=== PATIENT | female | born 1995 ===

== ENCOUNTER → 2017-10-16 | Outpatient (CLI) | payer MEDICAID, OTHER | LOC: BMCIMAGING 15:51 | PROVIDERS: ATTEND Orthopaedic Surgery Hand Surgery | DX: S52.501D Unspecified fracture of the lower end of right radius, subsequent encounter for closed fracture with routine healing (principal) ==

== ENCOUNTER 2017-10-24 13:01 | Day surgery (SDC) | payer MEDICAID ==
[2017-10-24] MEDS ORDERED: ceFAZolin 2 GM/SWFI 2 GM/20 ML SYR IVP ONE (13:07)
[2017-10-24] MEDS ORDERED: LIDOCAINE 1% 2 ML INJ ID PRN (13:08)
[2017-10-24] MEDS ORDERED: LR 1,000 ML IV ONE (13:08)
[2017-10-24] MEDS ORDERED: BUPIVACAINE 0.5% 30 ML SDV ONE (13:39)
[2017-10-24] MEDS ORDERED: EPINEPHrine 1 MG/ML INJ ONE (13:39)
[2017-10-24] MEDS ORDERED: HYDROGEN PEROXIDE 473 ML BOTTLE TP ONE (14:07)
[2017-10-24] MEDS ORDERED: MIDAZOLAM 2 MG/2 ML VIAL IVP ONE (14:22)
--- NOTE | 2017-10-24 14:25 | PDANEPAE ---
ANE Past Medical History - Cardiovascular History Hx Hypertension: No Hx Arrhythmias: No Hx Chest Pain: No Hx Coronary Artery / Peripheral Vascular Disease: No Hx CHF / Valvular Disease: No Hx Palpitations: No - Pulmonary History Hx COPD: No Hx Asthma/Reactive Airway Disease: No Hx Recent Upper Respiratory Infection: No Hx Oxygen in Use at Home: No Hx Sleep Apnea: No Sleep Apnea Screening Result - Last Documented: Negative - Neurologic History Hx Cerebrovascular Accident: No Hx Seizures: No Hx Dementia: No - Endocrine History Hx Diabetes: No Hypothyroid: No Hyperthyroid: No Obesity: yes, severe - Renal History Hx Renal Disorders: No - Liver History Hx Hepatic Disorders: No - Neurological & Psychiatric Hx Hx Neurological and Psychiatric Disorders: No - Cancer History Hx Cancer: No - Congenital Disorder History Hx Congenital Disorders: No - GI History GERD: no Hx Gastrointestinal Disorders: No - Other Health History Other Health History: wears glasses occassionally. eczema - Chronic Pain History Chronic Pain: No - Surgical History Prior Surgeries: na ANE Review of Systems Review of Systems: - Exercise capacity Exercise capacity: >=4 METS METS (RN): 4 METS ANE Patient History - Allergies Allergies/Adverse Reactions: Sulfa (Sulfonamide Antibiotics) Allergy (Verified 10/23/17 10:10) rash and bumps on skin - Home Medications Home Medications: Claritin 10/23/17 [Last Taken 10/13/17] Multivitamin (*) 10/23/17 [Last Taken 10/13/17] TYLENOL #3 10/23/17 [Last Taken 10/24/17 10:45] - NPO status NPO Since - Liquids (Date): 10/24/17 NPO Since - Liquids (Time): 10:45 NPO Since - Solids (Date): 10/23/17 NPO Since - Solids (Time): 18:00 - Anes Hx Hx Anesthesia Complications (with details): no H/O anesthesia - Smoking Hx Smoking Status: Never smoked - Alcohol Use Alcohol Use: Rarely - Family Anes Hx Family Anes Hx: neg - N/A Family Hx Anesthesia Complications: none ANE Labs/Vital Signs - Vital Signs Blood Pressure: 172/80 Heart Rate: 121 Respiratory Rate: 20 O2 Sat (%): 98 Height: 160.02 cm Weight: 104.326 kg ANE Physical Exam - Airway Neck exam: FROM Mallampati Score: Class 3 Mouth exam: normal dental/mouth exam - Pulmonary Pulmonary: no respiratory distress, no rales or rhonchi, clear to auscultation - Cardiovascular Cardiovascular: systolic murmur - ASA Status ASA Status: II ANE Anesthesia Plan Anesthesia Plan: general endotracheal anesthesia Total IV Anesthesia: No
--- NOTE | 2017-10-24 14:40 | PDHPUP ---
History & Physical Update H&P update statement: This history and physical update is based on an assessment of the patient which was completed after admission or registration (within 24 hours), but prior to the surgery/procedure. H&P update: H&P reviewed & patient examined, changes noted (Cardiac murmur auscultated by anesthesiologist. Echo to be performed)
[2017-10-24] MEDS ORDERED: REMIFENTANIL HCL 1 MG VIAL ONE (15:07)
[2017-10-24] MEDS ORDERED: fentaNYL 100 MCG/2 ML INJ ONE (15:07)
[2017-10-24] MEDS ORDERED: PROPOFOL 200 MG/20 ML VIAL ONE (15:07)
[2017-10-24] MEDS ORDERED: PROPOFOL/EMULSION 500 MG/50 ML BOTTLE IV ONE (15:07)
[2017-10-24] MEDS ORDERED: DEXAMETHASONE 4 MG/ML VIAL ONE (15:08)
[2017-10-24] MEDS ORDERED: ROCURONIUM 50 MG/5 ML VIAL ONE (15:08)
[2017-10-24] MEDS ORDERED: ONDANSETRON 4 MG/2 ML VIAL ONE ×2 (15:08→17:54)
[2017-10-24] MEDS ORDERED: LIDOCAINE 2% 5 ML SDV ONE (15:15)
[2017-10-24] MEDS ORDERED: NALOXONE HCL 0.4 MG/ML INJ IVP PRN (15:28)
[2017-10-24] MEDS ORDERED: HYDROCODONE/APAP 5/325 TAB PO PRN (15:33)
[2017-10-24] MEDS ORDERED: fentaNYL 100 MCG/2 ML INJ IVP PRN (15:33)
[2017-10-24] MEDS ORDERED: ACETAMINOPHEN 500 MG TAB PO PRN (15:33)
[2017-10-24] MEDS ORDERED: oxyCODONE IR 5 MG TAB PO PRN (15:33)
[2017-10-24] MEDS ORDERED: HYDROmorphONE/DILAUDID 2 MG/ML INJ IVP PRN (15:33)
[2017-10-24] MEDS ORDERED: LABETALOL HCL 5 MG/ML 20 ML MDV IVP PRN (15:50)
[2017-10-24] MEDS ORDERED: LR 500 ML IV PRN (15:50)
[2017-10-24] MEDS ORDERED: epHEDrine SULFATE 10 MG/ML SYR IVP PRN (15:50)
[2017-10-24] MEDS ORDERED: PHENYLEPHRINE HCL 100 MCG/ML SYR IVP PRN (15:50)
[2017-10-24] MEDS ORDERED: PROMETHAZINE HCL 25 MG/ML INJ IVP PRN (15:50)
[2017-10-24] MEDS ORDERED: ONDANSETRON 4 MG/2 ML VIAL IVP PRN (15:50)
--- NOTE | 2017-10-24 16:28 | ECHO ---
[email or web address] [address] [address] Main: [phone] Fax: Transthoracic Echocardiogram Name: ABUNDIO BURRELL MR#: [id number] Study Date: 10/24/2017 Study Time: 02:40 PM Date of : 1995 Age: 22 year(s) Height: ( ) Weight: ( ) BSA: Gender: Female Examination: Echo Indication: stat echo; pre-op asymptomatic murmur Image Quality: Technically Difficult Contrast: Requested by: Zaki Collazo BP: / Heart Rate: Rhythm: Tachycardia Indication: stat echo; pre-op asymptomatic murmur Procedure Staff Polymerization Helper: Joana Quick [facility] Reading Physician: Requesting Provider: Measurements: Chambers Valvular Assessment AV/MV Valvular Assessment TV/PV Normal Normal Normal Name Value Range Name Value Range Name Value Range Ao Deanna (MM): 2.8 cm (2.2 cm-3.7 AV Vmax: 1.97 m/s (1 m/s-1.7 PV Vmax: 2.23 m/s (0.6 m/s-0.9 cm) m/s) m/s) IVSd (2D): 0.8 cm (0.6 cm-1.1 AV maxP mmHg ( - ) PV Vmean: 1.54 m/s ( - ) cm) LVOT Vmax: 1.32 m/s (0.7 m/s-1.1 PV PGmax: 20 mmHg ( - ) LVDd (2D): 4.2 cm (3.9 cm-5.3 m/s) PV PGmean: 11 mmHg ( - ) cm) MV E Vmax: 1.10 m/s ( - ) PV VTI: 35.50 cm ( - ) LVDs (2D): 2.9 cm (2.1 cm-4 MV A Vmax: 1.13 m/s ( - ) cm) MV E/A: 0.97 ( - ) LVPWd (2D): 0.9 cm ( - ) LVEF (BP): 65 % (>=55 %) RVDd(2D): 2.5 cm (1.9 cm-3.8 cmmm) Continued Measurements: Chambers Name Value LADs Lon.6 cm LA Area: 18.7 cm2 LA Volume: 56 ml RVOT VTI: 19.00 cm Findings: Left Ventricle: Normal size left ventricle. No LV hypertrophy. Normal global systolic LV function. EF is 65 %. No Patient: ABUNDIO BURRELL Study Date: 10/24/2017 Page 1 of 2 02:40 PM regional wall motion abnormality. Right Ventricle: Normal size right ventricle. Normal RV function. Left Atrium: The left atrium is normal in size. Right Atrium: The right atrium is normal in size. Mitral Valve: The mitral valve is normal in appearance. There is no mitral valve regurgitation. No mitral stenosis is present. Aortic Valve: Cannot rule out bicuspid aortic valve. Aortic valve is not visualized. There is no aortic valve regurgitation. No aortic valve stenosis is present. Tricuspid Valve: The tricuspid valve is normal in appearance and function. There is no tricuspid valve regurgitation. Pulmonary artery pressure is not obtained due to inadequate TR jet. Pulmonic Valve: Pulmonary valve not well visualized. Turbulant flow throughout the RVOT, through the PV and main PA. Mean gradient across the PV 11mmHg.. Aorta: Mildly turbulant flow throughout the descending aorta with no evidence for a co-arctation.. Normal size aortic root measuring 2.8 cm. IVC: Normal size and course of the IVC. Pericardium: No pericardial effusion. There is pericardial fat. (No Signature Object) Patient: ABUNDIO BURRELL Study Date: 10/24/2017 Page 2 of 2 02:40 PM [id number]
[2017-10-24] MEDS ORDERED: fentaNYL 250 MCG/5 ML INJ ONE (16:37)
[2017-10-24] MEDS ORDERED: GLYCOPYRROLATE 0.2 MG/1 ML VIAL ONE ×3 (16:38→16:44)
[2017-10-24] MEDS ORDERED: KETOROLAC 30 MG/1 ML SDV ONE (16:38)
[2017-10-24] MEDS ORDERED: NEOSTIGMINE METHYLSULFATE 3 MG/3 ML SYR ONE (16:38)
[2017-10-24] MEDS ORDERED: LABETALOL HCL 5 MG/ML 20 ML MDV ONE (16:55)
--- NOTE | 2017-10-24 17:22 | POSTANESTH ---
Post Anesthetic Evaluation Cardiovascular Status: Similar to Pre-Op Cond Respiratory Status: Normal, Stable Level of Consciousness/Mental Status: Can Participate in Eval Pain Control: Adequate, Prn Tx Ordered Nausea/Vomiting Control: Adequate, Prn Tx Ordered Complications Possibly Related to Anesthesia: None Noted
[2017-10-24 18:21] VITALS: BP 134/86
--- NOTE | 2017-10-25 09:09 | GOP ---
[f rep st] OPERATIVE REPORT DATE OF OPERATION: 10/24/2017 SURGEON: Earl Tinsley MD ANESTHESIA: General. PREOPERATIVE DIAGNOSIS: Right distal radius intra-articular fracture of 2 parts. POSTOPERATIVE DIAGNOSIS: Right distal radius intra-articular fracture of 2 parts. PROCEDURE PERFORMED: Right distal radius fracture, open reduction, internal fixation of 2 articular parts. FINDINGS: ESTIMATED BLOOD LOSS: 5cc. INDICATIONS: The patient is a 22-year-old female who sustained this injury on October 13 while roller skating. She fell on outstretched hand, was seen at an Urgent Care, placed in a splint and reduction was not attempted. She was seen by me in the clinic. Xrays reviewed, she has a intra-artic distal radius fracture, intra-articular dorsal rim component. The dorsal angulation of the fracture was about 30 degrees dorsal angulation. This was not within tolerances. A reduction was attempted in clinic with a hematoma block. I was only able to achieve 20 degrees of dorsal angulation. With this amount of angulation I felt that ORIF was indicated. I discussed with her risks and benefits of operative versus nonoperative treatment. Risks include pain, bleeding, infection, damage to surrounding structures, need for further operations, delayed union, nonunion,need for further surgery. She understood these risks and wished to proceed. DESCRIPTION OF PROCEDURE: The patient was seen in preoperative holding area. She was given the opportunity to ask questions. All her questions were answered. Consent was signed. Surgical site was marked. Of note, prior to the procedure upon anesthesia evaluation, a murmur was identified. Subsequently an echo was performed and the echo showed some pulmonary regurgitation and evidence of pulmonary hypertension. This is likely due to undiagnosed sleep apnea, which may be contributed by the patient's weight. I discussed with the anesthesiologist, he felt that it was safe to continue the case. However, she should follow up with her primary care physician with a possible sleep study. We both decided it was safe to continue and then proceeded with the case. The patient was transferred to the operative suite. Care was taken to pad all bony prominences on the gurney. Time-out was called including surgical anesthesia team confirming surgical site and procedure to be performed. 2 g of Ancef were given prior to incision. The right upper extremity was prepped and draped in usual sterile fashion. This was after anesthesia was administered by the anesthesia team. The right upper extremity was prepped and draped in usual sterile fashion. Esmarch used to exsanguinate the right upper extremity. Tourniquet was inflated to 250 mmHg. I then made a standard modified volar Glenn approach to the distal radius protecting all vital structures at all times. I peeled back the pronator quadratus away from the distal radius, identified the fracture, cleaned out the fracture and then reduced it to the plate, held the plate down to the shaft with a cortical screw and then held the reduction with K-wires. We began placing screws in the distal locking cluster. Several screws were designed as compression type screws to pull together the dorsal fragment. This fragment did not appear to have much articular component and was somewhat difficult to control. However, I attempted to capture this fragment with the screws and then placed the remainder of the locking screws. I then confirmed under x-ray that these were below the articular surface. We then placed another 2 locking screws in the shaft. Irrigated copiously with sterile saline. Took final x-rays, I was happy with the reduction. The plate was a little bit lifted off the bone, however, I was able to cover the distal aspect with pronator quadratus tendon and muscle with ease to protect any tendons. After repairing the distal aspect of the pronator quadratus the tourniquet was let down. All bleeding was well controlled. The DRUJ was stable and closed the wound in layers with several sutures in the FCR sheath and then closed the wound in layers with the final layer being running 4-0 Monocryl. Steri-Strips were applied. Sterile dressing was applied. The patient was placed in a volar postop splint, awakened from general anesthesia in stable condition. Taken to the PACU in stable condition. IMPLANTS USED: [employer] distal radius plating system. POSTOPERATIVE CONDITION: Stable. POSTOPERATIVE PLAN: The patient will follow up with me in 10-14 days. She will make an appointment with the hand therapist within a week to exchange her postop splint to a removable forearm based removal plastic splint. /[id number]/[id number] MTDD
== END 2017-10-24 18:21 | disposition home or self-care (01) ==
LOC: FSGY 13:01
PROVIDERS: ATTEND Orthopaedic Surgery Hand Surgery
PROC: B246YZZ Ultrasonography of Right and Left Heart using Other Contrast (ICD-10-PCS; 2017-10-24)
PROC: 0PSH04Z Reposition Right Radius with Internal Fixation Device, Open Approach (ICD-10-PCS; principal; 2017-10-24 14:30)
DX: S52.571A Other intraarticular fracture of lower end of right radius, initial encounter for closed fracture (principal); V00.121A Fall from non-in-line roller-skates, initial encounter; Y93.51 Activity, roller skating (inline) and skateboarding; R01.1 Cardiac murmur, unspecified
CPT/HCPCS: C1713; J0171; J0690; J1100; J1885; J2250; J2405; J2704; J2710; J3010

== ENCOUNTER → 2017-11-22 | Outpatient (CLI) | payer MEDICAID | LOC: BMCIMAGING 14:06 | PROVIDERS: ATTEND Orthopaedic Surgery Hand Surgery | DX: S52.571D Other intraarticular fracture of lower end of right radius, subsequent encounter for closed fracture with routine healing (principal) ==

== ENCOUNTER → 2017-12-13 | Outpatient (CLI) | payer MEDICAID | LOC: BMCIMAGING 14:47 | PROVIDERS: ATTEND Orthopaedic Surgery Hand Surgery | DX: S52.571D Other intraarticular fracture of lower end of right radius, subsequent encounter for closed fracture with routine healing (principal) ==